=== PATIENT | male | born 1970 | race Hispanic/Latino ===

== ENCOUNTER 2019-07-13 19:24 | Emergency (ER) | payer SELFPAY ==
[2019-07-13] MEDS ORDERED: DIPHtheria,PERTUSSIS(ACELL),TETANUS VACCINE/PF 0.5 ML VIAL IM ONE (20:08)
--- NOTE | 2019-07-13 21:03 | Emergency Department Report ---
ED Laceration HPI - HPI Chief Complaint: Wound/Laceration Stated Complaint: LACERATION TO LT HAND Time Seen by Provider: 07/13/19 20:07 Occurred When: Today Severity: mild Laceration Symptoms: Yes Pain, No Foreign Body Sensation, No Numbness, No Weakness Other History: 49-year-old male patient presents with complaints of laceration to the left hand between his first and second digit x today. Patient states he cut his hand on the edge of a can of pineapples. He denies any numbness/tingling/weakness in his fingers or hand, decreased range of motion, swelling, or possible foreign bodies. He rates his current pain as a 2/10 in severity. Patient also denies any blood thinners and states he is unaware of when his last tetanus vaccination was ED Review of Systems ROS: Stated complaint: LACERATION TO LT HAND Other details as noted in HPI Comment: All other systems reviewed and negative ED Past Medical Hx - Past Medical History Previous Medical History?: No - Surgical History Past Surgical History?: No - Social History Smoking Status: Current Every Day Smoker Substance Use Type: None - Medications Home Medications: Home Medications Medication Instructions Recorded Confirmed Last Taken Type Sulfamethoxazole/Trimethoprim 1 each PO BID 7 Days #14 tablet 07/13/19 Unknown Rx [Bactrim DS TAB] Laceration Physical Exam - Exam General: Vital signs noted. No distress. Alert and acting appropriately. Wound Length (cm): 4 Laceration Location: Upper Extremity (4 cm laceration with mild active bleeding noted between the webbing of the first and second digit of the left hand) Laceration Exam: Yes Normal Distal CMS (Patient has normal range of motion of all 5 left digits and palm and wrist. Normal sensation is also noted.), No Foreign Body, No Exposed Tendon, Vessel, or Nerve, No Tendon Injury - Laceration /Wound Repair Hand Wound Length (cm): 4 Wound's Depth, Shape: linear Wound Explored: no foreign body removed Irrigated w/ Saline (ccs): 60 Betadine Prep?: Yes Anesthesia: 1% Lidocaine Volume Anesthetic (ccs): 8 Wound Repaired With: sutures Suture Size/Type: 4:0, proline Number of Sutures: 8 (Simple interrupted) Layer Closure?: No Sterile Dressing Applied?: Yes Progress: Minimal bleeding. Patient tolerated procedure well. Normal perfusion, sensation, and range of motion noted post procedure. ED Medical Decision Making - Medical Decision Making Patient here with laceration to left hand. Wound was clean and 8 sutures were placed. Patient tolerated procedure well. Tetanus vaccination was updated. Patient's vitals are normal. Discussed wound care, signs and symptoms of infection, and strict return precautions in great detail with patient who verbalizes understanding. Patient instructed to return in 10 days for suture removal. Critical care attestation.: If time is entered above; I have spent that time in minutes in the direct care of this critically ill patient, excluding procedure time. ED Disposition Clinical Impression: Laceration of left hand Qualifiers: Encounter type: initial encounter Foreign body presence: without foreign body Qualified Code(s): S61.412A - Laceration without foreign body of left hand, initial encounter Disposition: TO HOME OR SELFCARE Is pt being admited?: No Condition: Stable Instructions: Laceration (ED), Suture Care (ED) Additional Instructions: Please return to the emergency department in 10 days for suture removal Prescriptions: Sulfamethoxazole/Trimethoprim [Bactrim DS TAB] 1 each PO BID 7 Days #14 tablet Referrals: DARREN GRANADOS MD [Staff Physician] - as needed (For primary care) [facility] [Provider Group] - as needed (For primary care)
[2019-07-13 21:13] VITALS: BP 141/99
== END 2019-07-13 21:51 | disposition home or self-care (01) ==
LOC: ED 19:24
DX: S61.412A Laceration without foreign body of left hand, initial encounter (principal); X58.XXXA Exposure to other specified factors, initial encounter; Y93.89 Activity, other specified; Y92.89 Other specified places as the place of occurrence of the external cause; Y99.8 Other external cause status
CPT/HCPCS: 90471; 90715; 99282

== ENCOUNTER 2019-07-23 10:13 | Emergency (ER) | payer SELFPAY ==
[2019-07-23 11:03] VITALS: BP 109/85
== END 2019-07-23 11:32 | disposition home or self-care (01) ==
LOC: ED 10:13
DX: S61.411D Laceration without foreign body of right hand, subsequent encounter (principal); Z48.02 Encounter for removal of sutures; X58.XXXD Exposure to other specified factors, subsequent encounter